=== PATIENT | male | born 1955 | race Two or more races ===

== ENCOUNTER 2016-08-20 00:59 | Emergency (ER) | payer BC, OTHER ==
[2016-08-20 01:12] VITALS: BP 139/98; PULSE 109; TEMP 97.3; BMI 29.8
[2016-08-20 01:24] LABS: BASOPHIL 0.6 % (0-2.0); EOSINOPHIL 1.4 % (0-4.5); MCH 31.6 pg (25.7-33.7); MCHC 34.3 g/dl (32.0-35.9); MEAN CELL VOLUME 92.2 fl (80-96); MEAN PLT VOLUME 8.8 fl (7.5-11.1); NEUTROPHILS 75.7 % (42.8-82.8); PLATELET COUNT 114 K/MM3 (134-434); RDW 13.4 % (11.9-15.9); WHITE BLOOD COUNT 6.2 K/mm3 (4.0-10.0)
[2016-08-20 01:49] LABS: ALBUMIN 4.2 g/dl (3.4-5.0); ANION GAP 10 (8-16); BILIRUBIN,TOTAL 0.5 mg/dL (0.2-1.0); CALCIUM 9.4 mg/dL (8.5-10.1); CO2 28 mmol/L (21-32); COCKROFT - GAULT 80.27; CREATININE 1.3 mg/dL (0.7-1.3); GLUCOSE,RANDOM 127 mg/dL (74-106); SGOT/AST 47 U/L (15-37); SGPT/ALT 61 U/L (12-78); TOT PROT 7.2 g/dl (6.4-8.2)
[2016-08-20 01:52] LABS: ALK PHOS 83 U/L (45-117); TROPONIN I < 0.02 ng/ml (0.00-0.05)
--- NOTE | 2016-08-20 02:08 | PDOC ---
History of Present Illness - General Chief Complaint: Chest Pain Stated Complaint: CHEST PAIN Time Seen by Provider: 08/20/16 01:11 History Source: Patient Exam Limitations: No Limitations - History of Present Illness Initial Comments: 08/20/16 02:00 60yo Male patient w/ no significant past medical history presents to ED c/o Chest pain. Patient states while at home he was checking his blood pressure, which read 160/101. He states he was experiencing palpitations, so he took Tylenol and "felt weird" so he came in for evaluation. Denies n/v/d, sweating, fever, back pain, diff breathing, abd pain, dysuria, rectal bleeding, hematuria , or any other complaints at this time. Patient states he has not seen his PCP in over 1 year. Past History - Past Medical History Allergies/Adverse Reactions: Allergies Allergy/AdvReac Type Severity Reaction Status Date / Time No Known Allergies Allergy Verified 08/20/16 01:08 Home Medications: Ambulatory Orders NK [No Known Home Medication] 08/20/16 - Psycho/Social/Smoking Cessation Hx Suicidal Ideation: No Smoking History: Never smoked Have you smoked in the past 12 months: No Information on smoking cessation initiated: No Hx Alcohol Use: No Drug/Substance Use Hx: No *Physical Exam - Vital Signs Last Vital Signs Temp Pulse Resp BP Pulse Ox 97.3 F L 109 H 20 139/98 98 08/20/16 01:08 08/20/16 01:08 08/20/16 01:08 08/20/16 01:08 08/20/16 02:38 Heart Score/ECG Review - History History: Slightly suspicious - Electrocardiogram EKG: Normal - Age Age: 45-65 - Risk Factors Risk Factors Heart Score: Yes Hx Hypertension Based on the list above the patient has:: 1-2 risk factors - Troponin Troponin: </= normal limit - Score Heart Score - Total: 2 - ECG Impressions Normal ECG: Yes Non-specific ST Elevation: No Ischemic Changes: No Bradycardia: No Tachycardia: Sinus Torsades mateo Pointes: No WPW: No ED Treatment Course - LABORATORY CBC & Chemistry Diagram: 08/20/16 01:13 08/20/16 01:13 - ADDITIONAL ORDERS Additional order review: Laboratory Results 08/20/16 08/20/16 08/20/16 01:13 01:13 01:13 INR 1.00 Sodium 139 Potassium 4.3 Chloride 101 Carbon Dioxide 28 Anion Gap 10 BUN 19 H Creatinine 1.3 Creat Clearance w eGFR 56.70 Random Glucose 127 H Calcium 9.4 Total Bilirubin 0.5 AST 47 H ALT 61 Alkaline Phosphatase 83 Creatine Kinase 443 H Creatine Kinase Index 0.5 CK-MB (CK-2) 2.519 CK-MB (CK-2) Rel Index Cancelled Troponin I < 0.02 Total Protein 7.2 Albumin 4.2 TSH 2.27 08/20/16 01:13 RBC 4.88 MCV 92.2 MCHC 34.3 RDW 13.4 MPV 8.8 Neutrophils % 75.7 Lymphocytes % 13.1 Monocytes % 9.2 Eosinophils % 1.4 Basophils % 0.6 - RADIOLOGY Radiology Studies Ordered: Category Date Time Status CHEST PA & LAT [RAD] Stat Radiology 08/20/16 01:41 Taken *DC/Admit/Observation/Transfer Diagnosis at time of Disposition: Atypical chest pain - Discharge Dispostion Disposition: HOME Condition at time of disposition: Improved Admit: No - Referrals Referrals: Rian De Jesus MD [Primary Care Provider] - Celso Gomez MD [Staff Physician] - - Patient Instructions Printed Discharge Instructions: DI for Atypical Chest Pain Additional Instructions: FOLLOW UP WITH DR. DE JESUS. CALL TO SCHEDULE APPOINTMENT. RETURN IF SYMPTOMS WORSEN OR ANY CONCERNS FOR FURTHER EVALUATION. CONTACT DR. GOMEZ (CARDIOLOGY) FOR EVALUATION. CALL TO SCHEDULE APPOINTMENT SOON POSSIBLE.
[2016-08-20 03:51] LABS: THYROID STIMULATING HORMONE 2.27 uIU/ml (0.358-3.74)
[2016-08-20] MEDS ORDERED: KETOROLAC TROMETHAMINE 30 MG/1 ML VIAL IM ONE (03:55)
[2016-08-20] MEDS ORDERED: KETOROLAC TROMETHAMINE 30 MG/1 ML VIAL ONE (04:14)
--- NOTE | 2016-08-20 12:23 | EKG ---
Test Reason : Blood Pressure : / mmHG Vent. Rate : 108 BPM Atrial Rate : 108 BPM P-R Int : 148 ms QRS Dur : 082 ms QT Int : 336 ms P-R-T Axes : 031 -09 035 degrees QTc Int : 450 ms SINUS TACHYCARDIA NO PREVIOUS ECGS AVAILABLE Confirmed by RAZA GALDAMEZ MD ([id number]) on 08/20/2016 12:22:54 PM Referred By: Confirmed By:RAZA GALDAMEZ MD
== END 2016-08-20 04:25 | disposition home or self-care (01) ==
LOC: JER 00:59
PROC: 3E0233Z Introduction of Anti-inflammatory into Muscle, Percutaneous Approach (ICD-10-PCS; principal; 2016-08-20)
DX: R07.89 Other chest pain (principal)
CPT/HCPCS: 36415; 71020-TC; 80053; 82550; 82553; 84443; 84484; 85025; 85610; 93005; 93010; 99283-25